=== PATIENT | male | born 1995 | race Caucasian/White ===

== ENCOUNTER 2018-05-20 08:31 | Emergency (ER) | payer SELFPAY ==
[2018-05-20] MEDS ORDERED: NS 0.9% 1000 ML* 1,000 ML IV ONE ×2 (08:45→11:47)
[2018-05-20] MEDS ORDERED: Ketorolac INJ* 30 MG/ML 1 ML VIAL IV PUSH ONE (08:45)
--- NOTE | 2018-05-20 08:55 | ED ---
Complex/Multi-Sys Presentation - HPI Summary HPI Summary: Pt. is a 22-year-old male who presents emergency department for vague complaints of myalgias. Pt. states that yesterday he started to feel ill with diarrhea and muscle aches. Pain is mostly to upper back and shoulders. Pt. is a student at and just returned to the area Sunday. Pt. states that this morning he felt weak and fell. Pt. states he does not recall falling but woke up on the floor. Pt. states after fall he had neck pain and tingling in arms. Pt. denies sore throat, CP, SOB, cough. abd. pain, N/V, urinary symptoms. Past medical hx of anxiety and eating disorder. Pt. denies drug or ETOH use. Symptoms are moderate in severity. Movement makes symptoms worse. Nothing makes symptoms better. - History Of Current Complaint Chief Complaint: EDGeneral Time Seen by Provider: 05/20/18 08:37 Hx Obtained From: Patient - Allergies/Home Medications Allergies/Adverse Reactions: Allergies Allergy/AdvReac Type Severity Reaction Status Date / Time No Known Allergies Allergy Verified 05/20/18 08:54 PMH/Surg Hx/FS Hx/Imm Hx Previously Healthy: Yes Infectious Disease History: No Infectious Disease History: Denies: Traveled Outside the [place] in Last 30 Days - Family History Known Family History: Positive: Other - Noncontributory - Social History Lives: Dormitory/Roommates Alcohol Use: None Substance Use Type: Reports: None Smoking Status (MU): Never Smoked Tobacco Review of Systems Constitutional: Negative Negative: Fever, Chills Eyes: Negative Negative: Photophobia, Blurred Vision, Diplopia ENT: Negative Cardiovascular: Negative Negative: Palpitations, Chest Pain Respiratory: Negative Negative: Shortness Of Breath, Cough Gastrointestinal: Negative Positive: Diarrhea. Negative: Abdominal Pain, Vomiting, Nausea Neurological: Negative Positive: Paresthesia - Tingling in arms. Negative: Headache, Weakness All Other Systems Reviewed And Are Negative: Yes Physical Exam Triage Information Reviewed: Yes Vital Signs On Initial Exam: Initial Vitals Temp Pulse Resp BP Pulse Ox 98.1 F 72 18 116/69 100 05/20/18 08:38 05/20/18 08:38 05/20/18 08:38 05/20/18 08:38 05/20/18 08:38 Vital Signs Reviewed: Yes Appearance: Positive: Pain Distress - Pt. lying in bed, cervical collar on place. Skin: Positive: Warm, Dry, Other Head/Face: Positive: Normal Head/Face Inspection Eyes: Positive: Normal, EOMI ENT: Positive: Pharynx normal, TMs normal. Negative: Pharyngeal erythema, Tonsillar swelling, Tonsillar exudate Neck: Positive: Other: - Cerival collar in place Respiratory/Lung Sounds: Positive: Clear to Auscultation, Breath Sounds Present Cardiovascular: Positive: Normal, RRR Abdomen Description: Positive: Nontender, No Organomegaly Musculoskeletal: Positive: Other - 5 out of 5 strength in bilateral upper and lower extremities. All extremities are neurovascularly intact with good palpable pulses. Neurological: Positive: Normal, CN Intact II-III Psychiatric: Positive: Anxious - [place] Coma Scale Best Eye Response: 4 - Spontaneous Best Motor Response: 6 - Obeys Commands Best Verbal Response: 5 - Oriented Coma Scale Total: 15 Diagnostics - Vital Signs Vital Signs Temp Pulse Resp BP Pulse Ox 05/20/18 08:38 98.1 F 72 18 116/69 100 - Laboratory Result Diagrams: 05/20/18 08:54 05/20/18 08:54 Lab Statement: Any lab studies that have been ordered have been reviewed, and results considered in the medical decision making process. Complex Multi-Symp Course/Dx Course Of Treatment: Patient presenting with a symptoms of myalgias and neck pain after fall. Afebrile with stable vital signs. Cervical collar in place. Pt. appears very anxious and tearful. IV was started and patient was given IV fluids and Toradol. We'll obtain labs, head and neck CT given fall and complains of upper extremity tingling. ECG done at 0856 shows a sinus rhythm of 66 bpm, normal axis, appropriate intervals, no ST elevation. 0950: On re-exam pt. is still c/o severe neck pain. Collar was removed and neck examined. Pt. has severe midline neck tenderness. Collar was placed. Case discusssed with Dr. Zuniga, who recommends MRI cervical spine if pt. is still c/o severe midline neck tenderness after a fall to r/o ligamental or soft tissue injury. Tylenol ordered. 1730. CBC is unremarkable with a normal white blood cell count. Minimally elevated CRP. CMP shows mild elevation of BUN otherwise unremarkable. Urinalysis is negative. Brain and neck CT are negative for acute findings, reading per radiology. Chest x-ray negative for infiltrate or acute findings, reading per radiology. 1730: MRI of spine shows straightening of spine without other acute findings, reading per radiology. Will give pt. a dose of antivan for muscle relaxation. Cervical collar removed after MRI results. Negative brudzinski and kernigs. Pt. afebrile and normal WBC, concern for meningitis extremely low. Feel pt. Plan will be to dc home with flexeril and naproxen. Plan discussed with pt. and he agrees. At the time of dc nurse informs me pt. is tearful and concerned with leaving the ER. I spoke with pt. again. Pt. states that he believes pain may be from stress and anxiety. 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 Pt. states he has been very stressed out. Pt. states that he has an apt. with a therapist in 2 days. Pt. denies SI. After speaking with pt. awhile he agrees he feels comfortable returning to school. Rx sent. Advised to appy warm compresses to neck. I also spoke with pt.'s parents on the phone and discussed testing results and plan. They are comfortable with pt. being dc. Pt. to return to ER if sxs change or worsen. At the time of dc pt. ambulated to the bathroom down the hallway and appeared much more comfortable. Pt.'s friend will be picking him up for ED. - Diagnoses Provider Diagnoses: Cervical strain, Muscle spasm, Viral syndrome, Anxiety Discharge - Sign-Out/Discharge Documenting (check all that apply): Patient Departure - Discharge Plan Condition: Good Disposition: HOME Prescriptions: Cyclobenzaprine TAB* [Flexeril 10 MG TAB*] 10 mg PO BID PRN #6 tab PRN Reason: Pain Naproxen [Naproxen 500 mg tab] 500 mg PO Q12H #20 tablet Patient Education Materials: Cervical Strain (ED), Viral Syndrome (ED), Muscle Spasm (ED) Referrals: [facility] [Outside] [facility] [Z.BUSINESS, APPLICATION, OTHER] - No Primary Care Phys,NOPCP [Primary Care Provider] - Additional Instructions: Follow up with the [facility] Take medication as directed Increase fluids and rest Return to ER if symptoms change or worsen - Billing Disposition and Condition Condition: GOOD Disposition: Home
[2018-05-20 09:11] LABS: ABS Basophils 0 10^3/ul (0-0.2); ABS Eosinophils 0 10^3/ul (0-0.6); ABS Lymphocytes 0.2 10^3/ul (1.0-4.8); ABS Monocytes 0.5 10^3/ul (0-0.8); ABS Neutrophils 5.5 10^3/ul (1.5-7.7); ABS Nucleated RBC 0 10^3/ul; Eosinophil % 0.1 % (0-6); Hematocrit 45 % (42-52); Hemoglobin 15.2 g/dl (14.0-18.0); Lymphocyte % 3.7 % (25-47); Mean Corpuscular HGB Conc 34 g/dl (31-36); Mean Corpuscular Hemoglobin 29 pg (27-31); Mean Corpuscular Volume 84 fL (80-94); Mean Platelet Volume 8.8 um3 (7.4-10.4); Nucleated Red Blood Cells % 0.1; Platelet Count 156 10^3/ul (150-450); Red Blood Count 5.29 10^6/ul (4.00-5.40); Red Cell Distribution Width 13 % (10.5-15); White Blood Count 6.2 10^3/ul (3.5-10.8)
[2018-05-20 09:26] LABS: EGFR Non-African American 88.1 (>60)
--- NOTE | 2018-05-20 09:30 | RAD ---
HISTORY: syncope COMPARISONS: None VIEWS: 1: frontal portable view of the chest at 9:05 AM FINDINGS: LINES AND TUBES: None. CARDIOMEDIASTINAL SILHOUETTE: The cardiomediastinal silhouette is normal for portable technique. PLEURA: The costophrenic angles are sharp. No pleural abnormalities are noted. LUNG PARENCHYMA: The lungs are clear. ABDOMEN: The upper abdomen is clear. There is no subphrenic gas. BONES AND SOFT TISSUES: No bone or soft tissue abnormalities are noted. IMPRESSION: NO ACTIVE CARDIOPULMONARY DISEASE.
--- NOTE | 2018-05-20 09:32 | RAD ---
HISTORY: head injury COMPARISONS: None TECHNIQUE: Multiple contiguous axial CT scans were obtained of the head without intravenous contrast. FINDINGS: HEMORRHAGE/INFARCT: There is no hemorrhage or acute infarct. MASSES/SHIFT: There is no mass or shift. EXTRA-AXIAL SPACES: There is left middle cranial fossa arachnoid cyst measuring up to 2 cm. SULCI AND VENTRICLES: The sulci and ventricles are normal in size and position for the patient's stated age. CEREBRUM: There are no focal parenchymal abnormalities. BRAINSTEM: There are no focal parenchymal abnormalities. CEREBELLUM: There are no focal parenchymal abnormalities. VESSELS: The vessels are grossly normal. PARANASAL SINUSES: The paranasal sinuses are clear. ORBITS: The orbits are unremarkable. BONES AND SOFT TISSUE: No bone or soft tissue abnormalities are noted. OTHER: None IMPRESSION: NO ACUTE INTRACRANIAL PATHOLOGY.
--- NOTE | 2018-05-20 09:38 | RAD ---
HISTORY: head injury COMPARISONS: None TECHNIQUE: Multiple contiguous axial CT scans were obtained of the cervical spine without intravenous contrast, with coronal and sagittal multiplanar reformations. FINDINGS: BRAIN: The visualized brain is unremarkable CENTRAL CANAL: Evaluation of the central canal is limited on CT technique, however there is no obvious canalicular mass or epidural hemorrhage. ALIGNMENT: There is straightening of the normal cervical lordosis. VERTEBRAL BODIES: The odontoid process is intact. The atlantoaxial intervals are symmetric. The vertebral bodies are normal in attenuation, without fracture. JOINTS: There is no subluxation or dislocation MUSCULATURE: Unremarkable INTERVERTEBRAL DISCS: The intervertebral disc spaces are relatively preserved in height. AXIAL IMAGES: On axial images, there is no osseous neural foraminal narrowing or central canal stenosis. SOFT TISSUES: The visualized soft tissues of the neck are unremarkable. The prevertebral fat stripe is preserved. OTHER: None. IMPRESSION: NO ACUTE OSSEOUS INJURY TO THE CERVICAL SPINE.
[2018-05-20] MEDS ORDERED: Acetaminophen TAB* 325 MG PO ONE (09:56)
--- NOTE | 2018-05-20 14:48 | RAD ---
HISTORY: fall, severe midline neck pain COMPARISONS: CT dated May 20, 2018 TECHNIQUE: The following sequences were obtained of the cervical spine: Sagittal T1- and T2-weighted images, sagittal STIR images, axial T2 and gradient echo images. FINDINGS: BRAIN AND SPINAL CORD: The visualized spinal cord is normal in caliber, position, and signal intensity. The visualized portion of the brain is unremarkable. The cerebellar tonsils are normal in position. ALIGNMENT: There is straightening of the normal cervical lordosis. The alignment is otherwise normal. VERTEBRAL BODIES: The bones are normal in signal intensity. JOINTS: There is no subluxation or dislocation. MUSCULATURE: Normal INTERVERTEBRAL DISCS: There is mild loss of intervertebral disc height and T2 signal at C5-C6. AXIAL IMAGES: C2-C3: There is no disc herniation, spinal stenosis, or neuroforaminal narrowing. C3-C4: There is no disc herniation, spinal stenosis, or neuroforaminal narrowing. C4-C5: There is no disc herniation, spinal stenosis, or neuroforaminal narrowing. C5-C6: There is no disc herniation, spinal stenosis, or neuroforaminal narrowing. C6-C7: There is no disc herniation, spinal stenosis, or neuroforaminal narrowing. C7-T1: There is no disc herniation, spinal stenosis, or neuroforaminal narrowing. SOFT TISSUES: The visualized soft tissues of the neck are unremarkable. There is no soft tissue edema. There continues low T1 signal bands of the anterior longitudinal ligament, posterior longitudinal ligament, and ligamentum flavum. OTHER: None. IMPRESSION: STRAIGHTENING OF THE CERVICAL LORDOSIS. OTHERWISE UNREMARKABLE MRI OF THE CERVICAL SPINE. NO BONE OR SOFT TISSUE EDEMA TO SUGGEST ACUTE INJURY.
[2018-05-20 14:53] LABS: Urine Appearance Clear; Urine Blood Negative (Negative); Urine Color Yellow; Urine Ketones Negative (Negative); Urine Protein Negative (Negative); Urine Specific Gravity 1.014 (1.010-1.030); Urine Urobilinogen Negative (Negative)
[2018-05-20] MEDS ORDERED: LORazepam INJ* 2 MG/ML 1 ML VIAL IV PUSH ONE (15:32)
[2018-05-20 16:22] VITALS: BP 132/83
== END 2018-05-20 17:45 | disposition home or self-care (01) ==
LOC: ED 08:31
DX: S16.1XXA Strain of muscle, fascia and tendon at neck level, initial encounter (principal); M62.838 Other muscle spasm; B34.9 Viral infection, unspecified; F41.9 Anxiety disorder, unspecified; W19.XXXA Unspecified fall, initial encounter; Y92.9 Unspecified place or not applicable
CPT/HCPCS: 36415; 70450; 71045; 72125; 72141; 80053; 81003; 84484; 85025; 85652; 86140; 93005; 96361; 96374; 96375; 99283; A9270-GY; J1885; J2060